=== PATIENT | male | born 1935 | race Caucasian/White ===

== ENCOUNTER 2017-06-25 11:12 | Outpatient (CLI) | payer BC ==
--- NOTE | 2017-06-25 13:03 | RAD ---
RADIOGRAPH CHEST 2 VIEWS: Date: 06-25-17 Time: 11:28 a.m. HISTORY: 81-year-old male with dyspnea. Dr. Bauer reported one of the right pulmonary masses, and the recommendation for CT, by telephone discu ssion with Dr. German Campos at 11:32 a.m. on 06-25-17. COMPARISON: 08-29-15 FINDINGS: On the frontal view, there is a noncalcified, approximately 3 x 1.5 cm pulmonary mass in the right mi dlung zone, with irregular margins, which represents a significant interval change since the prior st udy. There is a more dense questionable pulmonary nodule in the right upper lobe, partially overlapping th e inferior aspect of the right clavicle, measuring approximately 2 x 2.5 cm, which is another apparen t change compared to prior studies. There is severe tortuosity, ectasia, and fusiform aneurysmal dilatation of the descending thoracic ao rta. The aneurysm has been progressively enlarging over the years, from 2013 to 2014, 2017, to now. Again noted are the multiple old left rib fracture deformities. There is diffuse, severe osteopenia. No pleural effusion or consolidation. No pulmonary edema or consolidation. No pneumothorax. There is hyperinflation consistent with COPD. IMPRESSION: 1. Highly suspicious for right pulmonary neoplasm: at least one, and possibly two. 2. Severe aneurysm of thoracic aorta, progressively worsening over the years. 3. Prosthetic aortic valve. 4. Emphysema. 5. Multiple old left rib fracture deformities. 6. No acute pulmonary findings. FELIPE POS: [facility]
== END 2017-06-25 11:13 | disposition home or self-care (01) ==
LOC: RAD 11:12
PROVIDERS: ATTEND Internal Medicine Critical Care Medicine
DX: R06.00 Dyspnea, unspecified (principal); I71.2 Thoracic aortic aneurysm, without rupture; J43.9 Emphysema, unspecified; Z87.81 Personal history of (healed) traumatic fracture
CPT/HCPCS: 71046

== ENCOUNTER 2017-06-26 11:37 | Outpatient (CLI) | payer BC ==
--- NOTE | 2017-06-26 12:59 | CT ---
TWO VIEWS CHEST WITHOUT CONTRAST: HISTORY: Lung nodule. COMPARISON: Chest radiograph prior day. FINDINGS: There is a spiculated mass right upper lobe measuring 1.9 x 2.6 x 2.3 cm. There is also a mass abutt ing the pleura within the anterior segment right upper lobe which is not quite as spiculated and daniel ures 2.1 x 1.2 x 2.3 cm. This mass rests behind the rib. Moderate background emphysematous change. There is aneurysmal dilatation of the descending thoracic aorta which is markedly ectatic. The aorta measures up to 7.7 cm. There is partial thrombosis on so me of the wall and possibly even an intramural hematoma and suggestion of a dissection. There is an aneurysm that extends into the abdomen. There is a calcified mass in the right lobe of the liver. Small sliding hiatal hernia. There is a d iverticulum of the lesser curvature of the stomach. There is an incompletely visualized ventral hernia. IMPRESSION: 1. Two right upper lobe masses highly suggestive of malignancy. 2. Aneurysmal dilatation of the descending thoracic aorta and abdominal aorta with likely intracrani al hematoma and dissection. Angiogram study may be beneficial. Thoracic surgical consultation is hi ghly advised. 3. Calcified mass right lobe of the liver incompletely evaluated. A contrast-enhanced study liver p rotocol may be beneficial if clinically warranted. 4. Moderate to severe background centrilobular emphysema. 5. Multiple left-sided rib fractures. CODE: T CODE: Lung nodule POS: [facility]
== END 2017-06-26 11:38 | disposition home or self-care (01) ==
LOC: CT 11:37
PROVIDERS: ATTEND Internal Medicine Critical Care Medicine
DX: R91.1 Solitary pulmonary nodule (principal); R91.8 Other nonspecific abnormal finding of lung field; J43.2 Centrilobular emphysema; I71.2 Thoracic aortic aneurysm, without rupture; I71.4 Abdominal aortic aneurysm, without rupture; S22.42XA Multiple fractures of ribs, left side, initial encounter for closed fracture; R16.0 Hepatomegaly, not elsewhere classified
CPT/HCPCS: 71250

== ENCOUNTER 2017-07-11 08:48 | Outpatient (CLI) | payer BC ==
--- NOTE | 2017-07-11 15:01 | PET ---
PET CT: HISTORY: 81-year-old male with solitary pulmonary nodule. Incidental right lung lesions (2). TECHNIQUE: PET scanning with CT attenuation correction was performed from the base of the brain through the prox imal thighs following the intravenous administration of 12 mCi [id number] in the left antecubital fossa. Imaging was performed after an uptake interval of 52 minutes. COMPARISON: None. CORRELATION: CT chest dated 06/26/17. FINDINGS: There is hypermetabolic activity in the right upper lobe spiculated mass noted on the CT scan with a SUV of 6.4. No abnormal FDG localization is seen in the pleural based mass in the right upper lobe (S UV 1.6). Hypermetabolic mediastinal lymph nodes are seen with a SUV of 3.2. No maggie hypermetabolism is seen i n the hilar regions, axilla, neck, abdomen, or pelvis. No hypermetabolic liver, adrenal, or skeletal lesions are seen. There is physiologic activity in the GI and tracts. The CT scan used for attenuation correction demonstrates no evidence of pleural effusions or ascites. There is a porcelain gallbladder. There is aneurysmal dilatation of the descending thoracic aorta an d the abdominal aorta measuring 7.5 cm in the descending thoracic aorta, 6.5 cm in the upper abdomina l aorta, and 5.5 cm in the infrarenal abdominal aorta. There are nonobstructing tiny right renal calc renato. A ventral hernia is seen containing loops of transverse colon. IMPRESSION: 1. 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 2. Aortic aneurysms. 3. Porcelain gallbladder. 4. Nonobstructing right renal calculi. POS: [facility]
== END 2017-07-11 08:49 | disposition home or self-care (01) ==
LOC: CP 08:48
PROVIDERS: ATTEND Internal Medicine Critical Care Medicine
DX: R91.1 Solitary pulmonary nodule (principal); J44.9 Chronic obstructive pulmonary disease, unspecified; C34.11 Malignant neoplasm of upper lobe, right bronchus or lung; C77.1 Secondary and unspecified malignant neoplasm of intrathoracic lymph nodes; I71.2 Thoracic aortic aneurysm, without rupture; K82.8 Other specified diseases of gallbladder; N20.0 Calculus of kidney
CPT/HCPCS: 78815; 94060; 94727; 94729; A9552

== ENCOUNTER 2017-08-19 08:43 | Day surgery (SDC) | payer BC ==
[2017-08-02 14:13] VITALS: BMI 25.8
[~2017-08-19 08:43] MED LIST: FLU VACC TS2017-18 (>65YR) 0.5 ML SYRINGE IM ONE; Prevnar 13-Val Conj/PF 0.5 ML SYRINGE IM ONE
[2017-08-19 09:05] LABS: #Eosinphils 0.1 thou/uL (0.0-0.7); #Lymphocytes 1.5 thou/uL (1.20-3.40); #Monocytes 0.6 thou/uL (0.11-0.59); #Neutrophils 4.6 thou/uL (1.40-6.50); %Basophils 0.6 % (0.0-1.0); %Eosinophils 1.9 % (0.0-10.0); %Lymphocytes 21.7 % (21.0-51.0); %Monocytes 8.5 % (0.0-10.0); %Neutrophils 67.3 % (42.0-75.0); Hemoglobin 13.1 g/dL (14.0-18.0); Mean Corpuscular HGB CONC 31.6 g/dL (32.0-36.0); Mean Corpuscular Hemoglobin 30.5 pg (27.0-31.0); Mean Corpuscular Volume 96.6 fl (80.0-94.0); Platelet Count 118 thou/uL (130-400); RBC Distribution Width 12.8 % (11.5-14.5); Red Blood Cell (RBC) Count 4.28 mill/uL (4.70-6.10); White Blood Cell (WBC) Count 6.8 thou/uL (4.8-10.8)
[2017-08-19 09:07] LABS: INR-International Normal Ratio 1.2; PTT 32.2 SEC (22.9-36.1); Prothrombin Time 15.2 SEC (12.0-14.7)
[2017-08-19] MEDS ORDERED: Midazolam HCl 2 mg/2 ml Vial ONE (09:41)
[2017-08-19] MEDS ORDERED: Fentanyl 100 MCG/2 ML VIAL ONE (09:41)
[2017-08-19 09:50] VITALS: BP 131/76; TEMP 98.2
[2017-08-19] MEDS ORDERED: Benzonatate 100 MG CAP PO SCH (12:15)
--- NOTE | 2017-08-19 13:31 | RAD ---
INSPIRATORY AND EXPIRATORY AP CHEST X-RAY: 08/19/2017 HISTORY: Post right upper lobe mass biopsy. COMPARISON: 06/25/2017 FINDINGS: The previously noted right upper lobe spiculated mass is slightly larger in size when compared to the prior exam. The pleural-based mass in the right upper lobe noted on the prior CT exam is less well seen on this exam but is seen adjacent to the right hilum and was better visualized on a prior chest x-ray. There is a small right apical pneumothorax. The thoracic aorta is tortuous, dilated, and partially calcified. There is now blunting of the left lateral costophrenic angle, which may represent either pleural or parenchymal scarring or a tiny left pleural effusion. Post surgical changes of the left chest wall are again present. Aortic valve rep lacement is again seen. A calcified granuloma overlies the right mid lung zone. No other interval c hange. IMPRESSION: 1. Small right apical pneumothorax, which was also noted on CT scan post biopsy. A follow-up evalua tion will be performed two hours from this exam. 2. Spiculated right upper lobe mass with a smaller mass overlying the medial aspect of the right mid lung zone, better visualized on prior exam and on prior CT evaluations. 3. Blunting of the left lateral costophrenic angle, which may be related to either a small left pleu ral effusion or pleural and parenchymal scarring. 4. Aneurysmal dilatation of the thoracic aorta, which is tortuous and partially calcified. POS: [facility]
--- NOTE | 2017-08-19 13:45 | CT ---
CT GUIDED PERCUTANEOUS BIOPSY OF A RIGHT UPPER LOBE MASS: DATE: 08/19/17. HISTORY: Spiculated right upper lobe mass. Biopsy was requested. TECHNIQUE: The procedure including the risks and complications were explained to the patient and the patient's f amily. After informed consent was obtained, the patient was placed on the CT scan table in the supin e position. Limited noncontrasted CT scan was obtained with grid localizer in place overlying the right upper lob e mass. An area was marked and then meticulously prepped and draped in the usual sterile fashion. Th e skin and subcutaneous tissues were infiltrated with buffered 1% Lidocaine for local anesthesia. A 19-gauge guide needle was advanced followed by [address] images. This was repeated until the needle was placed at the peripheral aspect of the right upper lobe mass. A total of two 20 -gauge core needle biopsy specimens were obtained utilizing coaxial technique. Pathology was available for evaluation of the specimens and lesion tissue was obtained by preliminary pathology report. As a result, the needle was removed, and hemostasis was achieved with direct pres sure. Followup CT scan examination was performed which did demonstrate a small right apical pneumoth orax. However, the patient experienced no chest pain or discomfort on inspiration. Given the very s mall size of the pneumothorax, a thoracostomy tube was not placed at this time. A dry, sterile dress ing was placed at puncture site, and the patient was transported to radiology nurse's holding for fur ther monitoring. Initial followup chest x-ray also demonstrated a small right apical pneumothorax. Repeat chest x-ray 2 hours from the initial chest x-ray will be performed to further monitor the righ t apical pneumothorax. IMPRESSION: 1. Technically successful CT-guided percutaneous biopsy of a right upper lobe mass. Pathologist was available for evaluation of the initial specimens which demonstrated adequate material for evaluatio n. 2. Small right apical pneumothorax. Will continue to follow. POS: [facility]
--- NOTE | 2017-08-19 15:18 | RAD ---
INSPIRATORY AND EXPIRATORY AP CHEST RADIOGRAPHS: Date: 08-19-17 History: Right sided pneumothorax post right lung mass biopsy. Comparison: Inspiratory/expiratory chest radiograph obtained at 1050 hours. FINDINGS: Again noted is the right apical pneumothorax which is unchanged in size compared to the prior exam. R ight upper lobe mass with mass medial aspect lung zone are again seen. No pleural effusion is seen on the right. Post-surgical changes related to cardiac valve replacement as well as post-surgical changes of the le ft chest wall are again seen. Blunting of the left lateral costophrenic angle is again present. Thora cic aorta remains dilated and tortuous. No other interval change. IMPRESSION: Stable right apical pneumothorax. Pneumothorax was reviewed with Dr. Quintanilla. Given that there has be en no significant interval change in the right sided pneumothorax, and patient has no clinical sympto ms, patient was discharged with strict instructions to return to the Emergency Department if the shelly ent developed shortness of breath or chest pain. Findings were discussed with the patient as well as the patient's family. POS: [facility]
== END 2017-08-19 13:40 | disposition home or self-care (01) ==
LOC: CT 08:43
PROVIDERS: ATTEND Internal Medicine Critical Care Medicine
PROC: 0BBC3ZX Excision of Right Upper Lung Lobe, Percutaneous Approach, Diagnostic (ICD-10-PCS; principal; 2017-08-19)
PROC: BB28ZZZ Computerized Tomography (CT Scan) of Left Tracheobronchial Tree (ICD-10-PCS; principal; 2017-08-19)
DX: C34.11 Malignant neoplasm of upper lobe, right bronchus or lung (principal); J44.9 Chronic obstructive pulmonary disease, unspecified; I10 Essential (primary) hypertension; E11.9 Type 2 diabetes mellitus without complications; Z79.84 Long term (current) use of oral hypoglycemic drugs; Z79.51 Long term (current) use of inhaled steroids; Z79.82 Long term (current) use of aspirin; Z79.899 Other long term (current) drug therapy; Z88.5 Allergy status to narcotic agent
CPT/HCPCS: 32405; 36415; 71045; 77012; 85025; 85610; 85730; 88305; 88313; 88333; 88341; 88342; J2250; J3010

== ENCOUNTER 2017-08-22 19:51 | Inpatient (IN) | payer BC, MEDICARE ==
[2017-08-22 20:46] LABS: #Basophils 0.1 thou/uL (0.0-0.2); #Eosinphils 0.3 thou/uL (0.0-0.7); #Lymphocytes 1.2 thou/uL (1.20-3.40); #Monocytes 0.9 thou/uL (0.11-0.59); #Neutrophils 5.8 thou/uL (1.40-6.50); %Basophils 0.8 % (0.0-1.0); %Eosinophils 3.1 % (0.0-10.0); %Lymphocytes 14.4 % (21.0-51.0); %Monocytes 10.5 % (0.0-10.0); %Neutrophils 71.2 % (42.0-75.0); Hemoglobin 12.7 g/dL (14.0-18.0); Mean Corpuscular HGB CONC 33.4 g/dL (32.0-36.0); Mean Corpuscular Hemoglobin 30.2 pg (27.0-31.0); Mean Corpuscular Volume 90.5 fl (80.0-94.0); Mean Platelet Volume 7.7 fL (7.4-10.4); PLT Morphology Comment Appears Decreased; Platelet Count 111 thou/uL (130-400); RBC Distribution Width 12.1 % (11.5-14.5); RBC Morphology Normal; Red Blood Cell (RBC) Count 4.19 mill/uL (4.70-6.10); White Blood Cell (WBC) Count 8.1 thou/uL (4.8-10.8)
[2017-08-22 20:50] LABS: ALT (SGPT) 12 U/L (8-55); AST (SGOT) 12 U/L (5-34); Alkaline Phosphatase 90 U/L (40-150); Anion Gap 12 mmol/L (10-20); BUN (Urea Nitrogen) 39 mg/dL (8.4-25.7); Bilirubin, Total 0.5 mg/dL (0.2-1.2); Calc. Creatinine Clearance 0 mL/min (70-130); Calcium 9.2 mg/dL (7.8-10.44); Carbon Dioxide 25 mmol/L (23-31); Chloride 108 mmol/L (98-107); Digoxin Less than 0.15 ng/mL (0.8-2.0); Estimated GFR-MDRD 37; Globulin 2.6 g/dL (2.4-3.5); Glucose 134 mg/dL (83-110); Potassium 5.2 mmol/L (3.5-5.1); Protein, Total 5.6 g/dL (5.8-8.1); Sodium 140 mmol/L (136-145)
[2017-08-22 20:51] LABS: CKMB 1.1 ng/mL (0-6.6); Troponin I 0.033 ng/mL (< 0.028)
[2017-08-22 20:59] LABS: MDiff Complete? YES
--- NOTE | 2017-08-22 23:08 | RAD ---
RADIOGRAPH CHEST 1 VIEW: Date: 08/22/17 Time: 8:25 p.m. HISTORY: 81-year-old male with dyspnea. COMPARISON: 08/19/17. FINDINGS: The previously demonstrated right apical pneumothorax is again demonstrated, occupying approximately 20% volume of the right hemithorax. It has not significantly changed. Again noted is the right upper lobe pulmonary mass. Again noted are the saccular aneurysm of the proximal descending thoracic aorta, and fusiform aneurysm of the mid and distal thoracic aorta. There is cardiomegaly. There are promine nt interstitial markings diffusely. No consolidation. No larry pulmonary alveolar edema or new air sp cheryl density. There is mild blunting of the lateral costophrenic angles bilaterally, similar to 8, but not present on 06/25/17. IMPRESSION: 1. Small right apical pneumothorax is unchanged. 2. Right upper lobe lung cancer. 3. Both saccular and fusiform aneurysms of the thoracic aorta. 4. Cardiomegaly and possible tiny bilateral pleural effusions. 5. No major interval change since 08/19/17. FELIPE [] POS: [facility]
[2017-08-22] MEDS ORDERED: Ondansetron HCl/PF 4 MG/2 ML Vial IVP PRN (23:13)
[2017-08-22] MEDS ORDERED: Acetaminophen 325 MG TAB PO PRN (23:13)
[2017-08-22] MEDS ORDERED: Ondansetron ODT 4 MG TAB SL PRN (23:13)
[2017-08-22 23:39] VITALS: BMI 25.9
[2017-08-23] MEDS ORDERED: HumaLOG 300 UNITS/3 ML VIAL SC PRN ×2 (00:11)
[2017-08-23] MEDS ORDERED: Dextrose 50% Abboject 50 ML SYRINGE SLOW IVP PRN (00:11)
[2017-08-23] MEDS ORDERED: Dextrose 5% in Water 1,000 ML IV PRN (00:11)
--- NOTE | 2017-08-23 01:33 | HP ---
PRIMARY CARE PHYSICIAN: Dr. Larose. ENVELOPE STAMPING MACHINE OPERATOR: Dr. Campos. CHIEF COMPLAINT: Shortness of breath. HISTORY OF PRESENT ILLNESS: Mr. Ware is a pleasant 81-year-old gentleman that has a history of se bebe COPD. He is on 2 liters of nasal cannula oxygen at home. He recently was found to have a lung mass and had a biopsy performed on Saturday and after the biopsy, he developed a small pneumothorax. Ginger meeks was told that he may have some shortness of breath, but it typically should get better in a few day s; however, he did feel short of breath, but did not improve over the course of the few days. He say s that he has been having a worsening cough and it is productive of some whitish phlegm. There is no blood, but he really notes extreme dyspnea on exertion and increase in work of breathing according t o his son and his son says that it seems like it takes him longer to recover and this is the reason ginger meeks came to the ER. Chest x-ray in the ER demonstrated the apical pneumothorax on the right; however, it is extremely small, but no evidence of any infiltrate. REVIEW OF SYSTEMS: Constitutional: There are no fevers, chills, no night sweats, no weight loss. H EENT: No headaches, no dizziness, no visual changes, no sore throat, rhinorrhea, neck pain, no adeno evangelista. Pulmonary: No hemoptysis, no cough, no wheezing. Cardiovascular: He denies any chest pain, no PND, no orthopnea, no palpitations. Gastrointestinal: No abdominal pain, no nausea, no vomiting , no change in bowels. Genitourinary: No urinary frequency, hematuria, no hesitancy. Musculoskelet al: No muscle pains, weakness or joint pains. Neurologic: No focal weakness, numbness, no seizures . Psychiatric: No symptoms of anxiety or depression. Skin and Integument: No skin changes. No ra sh. PAST MEDICAL HISTORY: Significant for chronic respiratory failure secondary to chronic obstructive p ulmonary disease with hypoxemia; hypertension; diabetes mellitus, type 2; history of aortic stenosis. PAST SURGICAL HISTORY: He has had a triple layer repair and that is an abdominal aortic aneurysm as well as a transvenous aortic valve replacement about 4 years ago. ALLERGIES: CODEINE, MORPHINE and DILAUDID. FAMILY HISTORY: Significant for diabetes in his mother. SOCIAL HISTORY: He is , has 5 children. He smokes. He is a former smoker. He quit 30 years ago. Prior to that, he smoked a pack and a half a day for at least 20 years. CURRENT MEDICATIONS: Include ProAir HFA, aspirin 81 mg daily, Lipitor 20 mg at bedtime, Dulera 5 mcg daily, Flomax 0.4 mg at bedtime, famotidine 40 mg twice daily, Cozaar 100 mg daily, metoprolol 12.5 mg twice a day, Spiriva 18 mcg daily, glipizide 5 mg daily, Norvasc 5 mg daily and finasteride 5 mg d aily. PHYSICAL EXAMINATION: GENERAL: He is alert and oriented. He does appear a bit fatigued. He is well-developed and well-no urished. VITAL SIGNS: Blood pressure was 131/83, heart rate 68, respiratory rate of 18, temperature is 98.4, O2 sats 100% on 2 liters nasal cannula. HEENT: Pupils are equal, round, and reactive. Extraocular muscles are intact. His sclerae are anic teric. Throat: No erythema, no exudates. NECK: No adenopathy, no bruits. LUNGS: He has got poor air movement. I did not appreciate any wheezing or rales. In fact, his lung sounds were diminished on both sides. CARDIOVASCULAR: He has a normal S1, S2. There was no S3 or S4. No murmurs, clicks, no rubs and his heart sounds are distant. ABDOMEN: Soft, nondistended. He does have an abdominal ventral hernia. Positive bowel sounds. EXTREMITIES: He has got trace pedal edema. NEUROLOGICALLY: The exam is nonfocal. LABORATORY DATA: Digoxin level 0.15. White blood cell count 8.1, hemoglobin 12.7, hematocrit is 38, platelet count is 111. Sodium 140, potassium 5.2, chloride is 108, CO2 is 25, BUN of 30, creatinine 1.78, glucose is 134. ASSESSMENT AND PLAN: This is an 81-year-old gentleman who presents with shortness of breath, which h e says he started noticing immediately after having a lung biopsy and has been persistent since then. Chest x-ray findings did not show any significant pneumothorax, only a small apical one. It is unc lear whether or not the pneumothorax is the cause of his shortness of breath or he may be having a ch ronic obstructive pulmonary disease exacerbation; however, his lung exam was more or less unremarkabl e. He will be placed in observation for now. We will continue his usual home medications for his lexii ngs including the Dulera and albuterol as needed and Atrovent will replace Spiriva while in the hospi xu, and consult his radiology manager for further recommendations.
[2017-08-23] MEDS ORDERED: glipiZIDE 5 MG TAB PO SCH (07:30)
[2017-08-23] MEDS ORDERED: Losartan 25 MG TAB PO SCH (09:00)
[2017-08-23] MEDS ORDERED: Famotidine 20 MG TAB PO SCH (09:00)
[2017-08-23] MEDS ORDERED: Mometasone/Formoterol 120 PUFF INHALER INH SCH (09:00)
[2017-08-23] MEDS ORDERED: Spiriva 18 MCG CAP (Box of 5 Caps) INH SCH (09:00)
[2017-08-23] MEDS ORDERED: Amlodipine 5 MG TAB PO SCH (09:00)
[2017-08-23] MEDS ORDERED: Finasteride 5 MG TAB PO SCH (09:00)
[2017-08-23] MEDS ORDERED: Metoprolol Tartrate 25 MG TAB PO SCH (09:00)
[2017-08-23] MEDS ORDERED: Aspirin 81 mg Enteric Coated Tablet PO SCH (09:00)
[2017-08-23 09:06] VITALS: BP 136/74; TEMP 97.7
--- NOTE | 2017-08-23 11:58 | CON ---
DATE OF CONSULTATION: 08/23/2017 HISTORY OF PRESENT ILLNESS: Mr. Ware is a pleasant gentleman whom I have followed for many years with COPD. Said he was expecting to gradually feel better each day after a small pneumothorax as a result of a CT-guided lung biopsy. He was diagnosed as having adenocarcinoma. He was not feeling as well as he thought he should, so he went to the emergency room. They decided that he should be admitted. He wants to go home. Actually, I know the gentleman quite well and he is not very far below his baseline at this point. He is not dyspneic at rest. PAST MEDICAL HISTORY: Remarkable for; 1. Recent diagnosis of adenocarcinoma of the right lung. He had a new lesion in his right upper lobe that was worked up and biopsied. He has been referred to Oncology and was actually seen by them 2 days ago. 2. History of several aortic aneurysm repairs. 3. History of a transcutaneous aortic valve. 4. History of obstructive lung disease. He actually has significant obstructive lung disease, but manages to continue to travel with just metered dose inhalers. 5. Diabetes. 6. Hypertension. FAMILY HISTORY: Negative for lung disease at an early age. There is a history of diabetes. SOCIAL HISTORY: He does not smoke, does not drink. MEDICATIONS: Prior to admission, he has ProAir, aspirin, Lipitor, Dulera, Flomax, Pepcid, Cozaar, metoprolol, Spiriva, glipizide, Norvasc and finasteride. REVIEW OF SYSTEMS: Otherwise, 12-point negative. PHYSICAL EXAMINATION: GENERAL: Patient is a very pleasant gentleman VITAL SIGNS: He is afebrile. Heart rate is 85, respiratory rate is 18, blood pressure 136/74. His oximetry as an outpatient has been in the mid 90s on room air. He is 99% on a 2 liter cannula. HEENT: His pupils are equal. Sclerae is anicteric. NECK: Supple. LUNGS: Remarkable for distant breath sounds. HEART: Regular rhythm. No S3. ABDOMEN: Soft and nontender. EXTREMITIES: No clubbing, cyanosis or edema. LABORATORY DATA: White count 8.1, hemoglobin 12.7 and platelets 111. Sodium 140, potassium 5.2, chloride 108, bicarbonate 25, BUN 39 and creatinine 1.78. His baseline creatinine last year was 1.65 and 1.67, so he is close to his baseline. IMPRESSION: 1. Adenocarcinoma, currently being evaluated for sterotactic radiotherapy plus or minus chemotherapy. 2. Thoracic and abdominal aortic aneurysm. 3. Status post aneurysm repairs. 4. Status post transcutaneous aortic valve replacement. 5. Small pneumothorax after biopsy. I think this contributes only a little to removing his pulmonary reserve. PLAN: I would recommend treating him his COPD exacerbation, realizing that his blood sugar will drift up a little bit, take 40 of prednisone for 4 days, then 20 mg a day for 6 days, and 10 mg for 6 days. I have written a script for a nebulizer. I have written a script for DuoNeb. He can use his nebulizer 3-4 times a day. I have recommended he follow up with me early next week. I think he is stable for discharge. This is a 50-minute consult. Greater than 50% of the time was spent on unit coordinating care. LV
--- NOTE | 2017-08-23 20:51 | DIS ---
PRIMARY CARE PHYSICIAN: German Larose M.D. DATE OF ADMISSION: 08/22/2017 DATE OF DISCHARGE: 08/23/2017 DISCHARGE DIAGNOSIS: Chronic obstructive pulmonary disease exacerbation. CONDITION OF PATIENT AT THE TIME OF DISCHARGE: Stable. I assessed Mr. Ware on the day of dischar . He denies any chest pain or shortness of breath. Vital signs are stable. S1 and S2 are heard, regular. Lungs are clear to auscultation bilaterally. HOSPITAL COURSE: Mr. Ware is a pleasant 81-year-old gentleman, who was admitted to [facility] on 08/22/2017 for shortness of breath. This is in the context of having a small pneumothorax as a result of CT-guided lung biopsy. He was seen by Pulmonology Service. He was diagnosed with chronic obstructive pulmonary disease exac erbation. He has been started on DuoNebs, prednisone taper and doxycycline. He is being discharged home in a stable condition. CONSULTATIONS DURING THIS HOSPITALIZATION: Pulmonology, Dr. Campos. DISCHARGE MEDICATIONS: In addition to his preadmission home medications as dictated on history and p hysical note from 08/22/2017, he has been started on prednisone taper, doxycycline 100 mg 2 times a d ay and DuoNebs p.r.n. Many thanks for allowing me to participate in your patient's care. Please feel free to contact me wi th any questions or concerns. DISCHARGE DESTINATION: Home. TOTAL AMOUNT OF TIME SPENT COORDINATING THIS DISCHARGE: 18 minutes.
[2017-08-23] MEDS ORDERED: Atorvastatin Calcium 20 MG TAB PO SCH (21:00)
[2017-08-23] MEDS ORDERED: Tamsulosin HCl 0.4 MG CAP PO SCH (21:00)
--- NOTE | 2017-09-03 15:45 | EKG ---
Test Reason : Blood Pressure : / mmHG Vent. Rate : 085 BPM Atrial Rate : 085 BPM P-R Int : 144 ms QRS Dur : 110 ms QT Int : 388 ms P-R-T Axes : 059 -46 125 degrees QTc Int : 461 ms Sinus rhythm with occasional , and consecutive Premature ventricular complexes and Possible Premature atrial complexes with Abberant conduction Left axis deviation Inferior infarct , age undetermined Anterior infarct , age undetermined T wave abnormality, consider lateral ischemia Abnormal ECG Confirmed by BRIE KRISHNAMURTHY D.O. ([id number]), medical editor ROSLYN ORELLANA ([id number]) on 09/03/2017 3:43:52 PM Referred By: Confirmed By:BRIE KRISHNAMURTHY D.O.
== END 2017-08-23 12:53 | disposition home or self-care (01) | DRG 200 ==
LOC: SCSER 19:51 → 2NO 22:54
PROVIDERS: ADMIT Internal Medicine; ATTEND Internal Medicine
DX: J95.811 Postprocedural pneumothorax (principal); J44.1 Chronic obstructive pulmonary disease with (acute) exacerbation; J96.11 Chronic respiratory failure with hypoxia; I71.2 Thoracic aortic aneurysm, without rupture; C34.11 Malignant neoplasm of upper lobe, right bronchus or lung; Z99.81 Dependence on supplemental oxygen; E11.9 Type 2 diabetes mellitus without complications; I10 Essential (primary) hypertension; Z87.891 Personal history of nicotine dependence; K43.9 Ventral hernia without obstruction or gangrene; I71.4 Abdominal aortic aneurysm, without rupture; Z95.2 Presence of prosthetic heart valve
CPT/HCPCS: 36416; 71045; 80053; 80162; 82553; 83880; 84484; 85025; 93005; 94640; 94664; A4216; J7620

== ENCOUNTER 2017-12-02 10:29 | Outpatient (CLI) | payer BC ==
--- NOTE | 2017-12-02 12:36 | RAD ---
TWO VIEW CHEST: Indication: Dyspnea. History of lung cancer. Comparison: August 2017, Chest CT June 2017. FINDINGS: Cardiomegaly. Vascular congestion. Right lung mass in the suprahilar region again noted. Small bilate ral effusions. Mild vascular congestion. Prominent aortic calcification with a tortuous aorta. There appears to be aneurysmal dilatation of this tortuous descending thoracic aorta. IMPRESSION: Cardiomegaly and mild vascular congestion. Known lung cancer. Tortuous ectatic thoracic aorta. No misa dence of acute focal infiltrate when compared to prior study. POS: [facility]
== END 2017-12-02 10:30 | disposition home or self-care (01) ==
LOC: RAD 10:29
PROVIDERS: ATTEND Internal Medicine Critical Care Medicine
DX: R06.00 Dyspnea, unspecified (principal); I51.7 Cardiomegaly; I77.810 Thoracic aortic ectasia; R09.89 Other specified symptoms and signs involving the circulatory and respiratory systems
CPT/HCPCS: 71046

== ENCOUNTER 2017-12-03 02:22 | Inpatient (IN) | payer BC ==
[2017-12-03] MEDS ORDERED: Albuterol Sulfate 2.5 mg/3 ml Neb ONE (02:43)
[2017-12-03] MEDS ORDERED: cefTRIAXone\\ROCEPHIN 2 GM VIAL ONE (03:06)
[2017-12-03] MEDS ORDERED: methylPREDNISolone Sod Succ/PF 125 MG/2 ML VIAL ONE (03:07)
[2017-12-03 03:17] LABS: Band 43 % (5-11); Eosinophils 3 % (0-10); Hemoglobin 12.8 g/dL (14.0-18.0); Lymphocytes 1 % (21-51); MDiff Complete? YES; Mean Corpuscular HGB CONC 32.5 g/dL (32.0-36.0); Mean Corpuscular Hemoglobin 30.4 pg (27.0-31.0); Mean Corpuscular Volume 93.6 fL (78.0-98.0); Mean Platelet Volume 7.6 fL (7.4-10.4); Monocytes 3 % (0-10); Neutrophil 50 % (42-75); PLT Morphology Comment Appears Decreased; Platelet Count 109 thou/uL (130-400); RBC Distribution Width 13.4 % (11.5-14.5); Reflex for Review?? NO; White Blood Cell (WBC) Count 10.9 thou/uL (4.8-10.8)
[2017-12-03 03:28] LABS: CKMB 1.4 ng/mL (0-6.6); Troponin I 0.029 ng/mL (< 0.028)
[2017-12-03 03:32] LABS: Actual Bicarbonate (HCO3a) 26.8 mEq/L (22-28); CO2 Tension 52.7 mmHg (35.0-45.0); O2 Tension (PaO2) 83.7 mmHg (> 60.0); pH, Arterial 7.32 (7.35-7.45)
[2017-12-03 03:33] LABS: Analyzer IN Cardio ER; Calcium, Ionized 1.4 mmol/L (1.12-1.30); Hematocrit-ABG 38.9 % (42.0-52.0); Hemoglobin (Hb) 12.6 g/dL (14.0-18.0)
[2017-12-03 03:34] LABS: ALV-art Gradient 343.225 (0-20); Puncture Site RRA
[2017-12-03 03:54] LABS: ALT (SGPT) 11 U/L (8-55); AST (SGOT) 31 U/L (5-34); Albumin 3.5 g/dL (3.4-4.8); Alkaline Phosphatase 117 U/L (40-150); Anion Gap 9 mmol/L (10-20); BUN (Urea Nitrogen) 46 mg/dL (8.4-25.7); Bilirubin, Total 0.7 mg/dL (0.2-1.2); Calc. Creatinine Clearance 0 mL/min (70-130); Carbon Dioxide 29 mmol/L (23-31); Chloride 107 mmol/L (98-107); Estimated GFR-MDRD 43; Globulin 3.3 g/dL (2.4-3.5); Glucose 133 mg/dL (83-110); Lipase 7 U/L (8-78); Magnesium 2.3 mg/dL (1.6-2.6); Potassium 5.8 mmol/L (3.5-5.1); Protein, Total 6.8 g/dL (5.8-8.1); Sodium 139 mmol/L (136-145)
[2017-12-03] MEDS ORDERED: Bisacodyl 5 MG TAB PO PRN (08:49)
[2017-12-03] MEDS ORDERED: Acetaminophen 650 MG Suppository PR PRN (08:49)
--- NOTE | 2017-12-03 09:13 | RAD ---
PORTABLE AP CHEST RADIOGRAPH: Date: 12-03-17 History: Shortness of breath. Comparison: 12-02-17 FINDINGS: Mass like density in the right suprahilar region is again present. There is a small right pleural eff usion and question of a tiny left pleural effusion. Vascular calcifications are seen in the thoracic aorta with suggestion of bilobed aneurysmal dilatation of the descending thoracic aorta, also see on prior exam. The cardiac silhouette does appear to be shifted to the left, stable in appearance compar ed to the prior exam. There are chronic lung changes present. Deformity of the left chest wall is aga in noted. There is osteopenia. IMPRESSION: 1. Stable mass like opacity in the right suprahilar region. 2. Small to moderate sized right pleural effusion with suggestion of small left pleural effusion in a ddition to atelectasis. 3. Chronic lung changes. 4. Irregular bilobed aneurysmal dilatation of the descending thoracic aorta, also noted on prior exam . 5. Osteopenia. POS: [facility]
--- NOTE | 2017-12-03 10:21 | CT ---
PRELIMINARY REPORT/[facility]/EMERGENTY AFTER-HOURS PROCEDURE CT Angiography Chest With Intravenous Contrast CLINICAL HISTORY: 82 years old, male; Signs and symptoms; Shortness of breath; Patient HX: 82 yo m presents to ed with SOB. Son reports that pt has HX of respiratory distress and anxiety. Son reports that pt has been fee ling like he couldn't breath off and on for the past few days. Pt has history of stage 1 lung cancer, was not prescribed oxygen treatments. Pt was just given radiation, was not on chemo and finished olya atment about 4 weeks ago. Son reports most recent chest xray was clear. Pt has HX of copd and some ch f. Pt denies HX of blood clots. TECHNIQUE: Axial computed tomographic angiography images of the chest with intravenous contrast using pulmonary embolism protocol. MIP reconstructed images were created and reviewed. Coronal reformatted images were created and reviewed. COMPARISON: No relevant prior studies available. FINDINGS: Pulmonary arteries: Normal. No pulmonary embolism. Aorta: There is aneurysmal dilatation of the descending thoracic aorta up to 7.4 cm in diameter. The aorta demonstrates severe atherosclerotic calcification and ectasia. Lungs: There are nonspecific opacities at lung bases, LEFT greater than RIGHT, compatible with atelec tasis or pneumonia in the appropriate clinical setting. There is a 2.7 x 3.2 cm RIGHT upper lobe pulm onary mass. A 1.7 cm RIGHT middle lobe peripheral pulmonary nodule is noted. Pleural space: There is a moderate RIGHT pleural effusion. No pneumothorax. Heart: Normal. No cardiomegaly. No significant pericardial effusion. No evidence of RV dysfunction. Bones/joints: No acute fracture. No dislocation. Soft tissues: Normal. Lymph nodes: Normal. No enlarged lymph nodes. IMPRESSION: 1. There is a moderate RIGHT pleural effusion. 2. RIGHT lung mass and nodule as above. 3. There are nonspecific opacities at lung bases, LEFT greater than RIGHT, compatible with atelectasi s or pneumonia in the appropriate clinical setting. 4. 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 Thank you for allowing us to participate in the care of your patient. Dictated and Authenticated by: Riccardo Norris MD 12/03/2017 5:30 AM Central Time ([place] & [place]) FINAL REPORT CT PULMONARY ANGIOGRAM WITH IV CONTRAST AND 3D POSTPROCESSING: I agree with the preliminary report given by Dr. Riccardo Loo of [facility]. POS: [facility]
[2017-12-03] MEDS ORDERED: ISOVUE-370 76%-LOCM 1 ML ONE (10:34)
[2017-12-03] MEDS ORDERED: Acetaminophen 325 MG TAB ONE (11:04)
[2017-12-03 12:12] LABS: Bilirubin Negative (Negative); Blood, Urine Small (Negative); Clarity CLEAR (Clear); Glucose, Urine (Dipstick) Negative (Negative); Leukocyte Negative (Negative); Nitrite Negative (Negative); Protein, Urine (Dipstick) > or equal to 300 mg/dL (Neg-Trace); Specific Gravity, Urine 1.044 (1.002-1.036); Urobilinogen 0.2 mg/dL (0.2-1.0)
[2017-12-03 12:15] LABS: Bacteria/HPF None Seen HPF (None Seen); Pathc Cast-AUWi Flag 2.47 (0-2.49); RBC/HPF 0-3 HPF (0-3); Squamous Epithelial 0-3 HPF (0-3)
[2017-12-03 12:17] LABS: Yeast-AUWi Flag 39.3 (0-25.0)
[2017-12-03 12:26] LABS: Hyaline Casts/LPF 0-3 HYALINE CAST LPF (0-3 Hyaline)
[2017-12-03 12:27] LABS: Crystals/HPF 1+ AMORPH URATES HPF (Negative); Yeast-All Forms None Seen HPF (None Seen)
[2017-12-03 13:00] VITALS: BMI 26.4
[2017-12-03] MEDS ORDERED: Lidocaine 1% (PF) 30 ML VIAL ONE (14:37)
--- NOTE | 2017-12-03 14:44 | HP ---
PRIMARY CARE PROVIDER: German Larose M.D. CHIEF COMPLAINT: Shortness of breath. HISTORY OF PRESENT ILLNESS: Mr. Ware is a pleasant 82-year-old gentleman who was seen at [facility] on 12/03/2017. He has a history of lung cancer, for which he received radi ation treatment. His last radiation treatment was 4 weeks ago. He has always been short of breath, but it worsened over the last 4-5 days. He is having difficulty sleeping because of shortness of cynthia ath. He has no chest pain, but he has some pain in the back. He does not have any pain in the abdom en. He does not have any nausea or vomiting. He has cough that is nonproductive. He does not have fevers. He also has anxiety and is currently using Xanax. He reportedly was started on 0.5 mg of Xanax, but that was too sedating. He currently uses 0.125 mg of Xanax as needed. The patient is able to provide some history. Collateral history was obtained from patient's son by t he bedside. REVIEW OF SYSTEMS: All other systems reviewed and found to be negative. PAST MEDICAL HISTORY: Lung cancer status post radiation therapy, chronic respiratory failure seconda ry to chronic obstructive pulmonary disease with hypoxemia, hypertension, diabetes mellitus type 2, a nd aortic stenosis. PAST SURGICAL HISTORY: Abdominal aortic aneurysm repair and transvenous aortic valve replacement. FAMILY HISTORY: Diabetes mellitus in his mother. SOCIAL HISTORY: No current tobacco use or alcohol use or recreational drug use. ALLERGIES: CODEINE, MORPHINE, DILAUDID. CURRENT MEDICATIONS: Aspirin 81 mg daily, amlodipine 5 mg 2 times a day, atorvastatin 20 mg daily, N exium 40 mg 2 times a day, glipizide 5 mg daily, losartan 100 mg daily, metoprolol tartrate 12.5 mg 2 times a day, famotidine 40 mg 2 times a day, tamsulosin 0.4 mg daily, and Benzonatate 100 mg tablets , 2 tablets at bedtime. CODE STATUS: I discussed his code status. He is DNR. PHYSICAL EXAMINATION: GENERAL: Mr. Ware is sleepy, but arousable, on BiPAP machine. VITAL SIGNS: Blood pressure is 127/67, pulse 81, respiratory rate 22, and oxygen saturation 100% on BiPAP. He is afebrile. EYES: No scleral icterus. No conjunctival pallor. ENT: Moist mucosal membranes, no oral lesions. NECK: Supple, nontender, trachea midline. RESPIRATORY: Accessory muscles of breathing are active. Chest wall movements are symmetric bilatera lly. LUNGS: Examination reveals markedly diminished breath sounds at both bases. CARDIOVASCULAR: S1, S2 are heard, regular. Peripheral pulses palpable. No carotid bruit, no perica rdial rub. ABDOMEN: Soft, nontender, bowel sounds heard, no hepatomegaly, no splenomegaly. NEUROLOGIC: Cranial nerves II-XII intact, deep tendon reflexes 2+. MUSCULOSKELETAL: The patient is moving all 4 extremities. He has bilateral lower extremity edema. SKIN: No rashes or subcutaneous nodules. LYMPHATIC: No palpable cervical lymphadenopathy. PSYCHIATRIC: Anxious, oriented to person, place, and time. DATABASE: Mr. Ware's labs and investigations were reviewed. I reviewed his electrocardiogram, wh ich shows normal sinus rhythm, no ST changes to suggest an acute coronary syndrome. I also reviewed his chest x-ray, which shows a right suprahilar mass and right-sided pleural effusion. He also had C T angiogram of the chest, which showed moderate right-sided pleural effusion, right lung mass and nod ule, nonspecific opacities at lung bases, left greater than right, compatible with atelectasis or pne umonia, marked ectasia and aneurysmal dilatation of the descending thoracic aorta up to 7.4 cm in shaun meter. He has leukocytosis with 10,900 white cells, of which 43% are bands neutrophils and 15% are n eutrophils, normocytic anemia with hemoglobin 12.8, thrombocytopenia with platelet count of 109,000, D-dimer greater than 20, normal sodium, elevated potassium of 5.8, elevated blood urea nitrogen of 46 , elevated creatinine of 1.55, baseline creatinine appears to be close to this, indeterminate troponi n I of 0.029 and urinalysis that is positive for ketones and blood, but negative for nitrite and leuk ocyte esterase. ASSESSMENT AND PLAN: Mr. Ware is a pleasant 82-year-old gentleman who was seen at [facility] on 12/03/2017. His problem list includes: 1. Acute on chronic respiratory failure: Mr. Ware is presenting with acute on chronic respirator y failure, most likely secondary to pulmonary infection. He will be admitted to the hospital for fur ther management. 2. Sepsis: His presentation is compatible with sepsis, suspected source of infection, lung. We gus l treat him with intravenous antibiotics in the form of ceftriaxone and azithromycin. 3. Pneumonia: Antibiotics as listed above. 4. Hyperkalemia: We will administer Kayexalate and recheck. 5. Chronic kidney disease. Appears to be stable. Many thanks for allowing me to participate in your patient's care. Please feel free to contact me wi th any questions or concerns. LEVEL OF RISK: High. LEVEL OF COMPLEXITY: High.
[2017-12-03 15:17] LABS: BF Color Yellow; Body Fluid Source PLEURAL FLUID; Clarity Hazy (Clear); Tube # EDTA; WBC Background Count 0.01; WBC/NonHematic-Auto 635 /cumm
[2017-12-03 15:18] LABS: BF RBC Count - Manual 825 /cumm; Fluid, Triglycerides Less than 11 mg/dL (Not Available); Pleural Fluid, Amylase 73 U/L (Not Available); Pleural Fluid, Glucose 194 mg/dL; Pleural Fluid, LDH 78 U/L (Not Available); Pleural Fluid, Protein 2.7 g/dL
[2017-12-03 15:34] LABS: BF Segmented Neutrophils 10 %; Cell Count Non Hematic 38 %; Eosinophils 1 %; Lymphocytes 51 %
--- NOTE | 2017-12-03 15:39 | CON ---
DATE OF CONSULTATION: 12/03/2017 This encompassed 70 minutes time. Of that time, greater than 50% was spent with the patient and/or o n the patient's unit in the hospital. REASON FOR CONSULTATION: Pleural effusion and shortness of breath and acute on chronic respiratory f ailure. HISTORY OF PRESENT ILLNESS: Most of the history is provided by the patient's son and the patient's w brooks, who are at the bedside. This gentleman is a patient of Dr. Campos's, he is 82 years old, he was seen in the office yesterday with increasing shortness of breath. He was prescribed steroids and ant ibiotics is nothing looked acute on his x-ray. He did not get the medication filled. He came to the emergency room because he felt like he needed further investigation. He underwent a CT of the chest , which showed moderate sized right pleural effusion, which was really not that obvious on his chest x-ray. He has just finished radiation therapy for adenocarcinoma of the right upper lobe that was di agnosed by CT needle biopsy. He has had no cough or congestion, but he has had difficulty sleeping b ecause of shortness of breath. PAST MEDICAL HISTORY: 1. Adenocarcinoma. 2. Aortic aneurysm, requiring repair. 3. Status post transcutaneous aortic valve replacement. 4. Chronic obstructive pulmonary disease. 5. Diabetes. 6. Hypertension. PAST SURGICAL HISTORY: Aortic aneurysm repair in the TAVR. SOCIAL HISTORY: Nonsmoker, does not consume alcohol. FAMILY MEDICAL HISTORY: Negative for lung disease. REVIEW OF SYSTEMS: Twelve-point review of systems otherwise negative. MEDICATIONS PRIOR TO ADMISSION: Prednisone, Glucotrol, Spiriva, Flomax, Dulera, metoprolol, Cozaar, DuoNeb, finasteride, famotidine, Vibramycin, atorvastatin, aspirin, amlodipine, and albuterol. PHYSICAL EXAMINATION: VITAL SIGNS: Temperature 98.4, pulse 76, blood pressure 118/69, O2 sat 100% on BiPAP. GENERAL: The patient is currently on BiPAP, appears to be comfortable. HEENT: Pupils react. Sclerae icteric. Oropharynx clear. NECK: Without adenopathy or JVD. CARDIAC: S1 and S2 regular. 2/6 systolic murmur left sternal border. LUNGS: Diminished breath sounds and dullness to percussion in the right base. CARDIOVASCULAR: Left side clear. ABDOMEN: Soft, nontender, nondistended. EXTREMITIES: No clubbing, cyanosis, 2+ lower extremity edema. LABORATORY DATA AND X-RAY FINDINGS: White blood cell count 10.9, hematocrit 39.3, platelet count 109 . D-dimer was greater than 20. PH 7.32, pCO2 of 52, PO2 of 83. On BiPAP 10/5, FiO2 of 70%. Sodiu m 139, potassium 5.8, chloride 107, CO2 of 29, BUN 46, creatinine 1.5, glucose 133. Lactate 0.9, tro ponin 0.029. BNP 217. I reviewed the chest x-ray and CT scan personally. ASSESSMENT: 1. Acute on chronic respiratory failure. 2. Adenocarcinoma, right upper lobe. 3. Pleural effusion. 4. History of valvular heart disease. PLAN: 1. I think it would be worth doing a diagnostic and therapeutic thoracentesis on the right chest. W jeanna discussed potential complications including, but not limited to bleeding, infection, and lung puncture. He is agreeable to proceed. 2. Continue BiPAP therapy in the interim. 3. Continue antibiotics have been started for the infiltrative changes. 4. I will notify Dr. Campos of the patient's hospitalization.
--- NOTE | 2017-12-03 15:56 | RAD ---
PORTABLE AP CHEST XRAY: DATE: 12/03/17. HISTORY: Post thoracentesis. COMPARISON: 12/03/17 at 0306 hours. FINDINGS: Again noted is a spiculated mass-like density in the right suprahilar region. Irregular aneurysmal d ilatation of the thoracic aorta is again present with atherosclerotic vascular calcifications noted. Cardiac silhouette is not well evaluated due to overlying aneurysmal dilatation of thoracic aorta bu t is stable in size from the prior exam. There are chronic lung changes and a suggestion of small ri ght pleural effusion. No pneumothorax is present. There are interstitial densities at the left lung base which may be related to either atelectasis or infiltrate. No other interval change. IMPRESSION: 1. Tiny right pleural effusion, but the pleural effusion does appear improved as well as improvement in interstitial and patchy density right lung base probably related to improving atelectasis. No pn eumothorax is seen. 2. Stable spiculated mass-like density in the right suprahilar region. 3. Interstitial and patchy density left lung base which may be related to atelectasis or pneumonia. Followup to resolution is recommended. 4. Irregular aneurysmal dilatation thoracic aorta with vascular calcifications. POS: [facility]
[2017-12-03] MEDS: Heparin 5,000 UNITS/ML VIAL SC SCH ×3 (16:28→21:07)
[2017-12-03] MEDS: Azithromycin 500 MG in Sodium Chloride 0.9% 250 ML 250 ML IVPB SCH (16:28)
--- NOTE | 2017-12-03 17:42 | OP ---
DATE OF PROCEDURE: 12/03/2017 PROCEDURE: Right thoracentesis. PREOPERATIVE DIAGNOSIS: Right pleural effusion. POSTOPERATIVE DIAGNOSIS: Right pleural effusion. ANESTHESIA: 1% lidocaine without epinephrine. DESCRIPTION OF PROCEDURE: The right posterior hemothorax was first visualized with ultrasound to mirian ntify the effusion site at about the 7th-8th interspace at the lateral scapular line on the right wander e. The skin was anesthetized with 1% lidocaine after being scrubbed with chlorhexidine. The pleural space was then entered with a Pyhb-N-Rubemutl catheter. Approximately 200 mL of jordy transudative- appearing fluid was removed and sent for appropriate studies. He tolerated the procedure well.
[2017-12-03] MEDS ORDERED: Dextrose 50% Abboject 50 ML SYRINGE SLOW IVP SCH (19:45)
[2017-12-03] MEDS ORDERED: Insulin Regular 300 UNITS/3 ML VIAL IVP SCH (19:45)
[2017-12-03] MEDS: Albuterol Sulfate 1.25 MG/3 ML NEB NEB SCH ×2 (20:12→23:42)
[2017-12-03] MEDS: ALPRAZolam 0.25 MG TAB PO PRN (22:58)
[2017-12-03] MEDS: Acetaminophen 325 MG TAB PO PRN (23:00)
[2017-12-04] MEDS: cefTRIAXone\\ROCEPHIN 1 GM in Sodium Chloride 0.9% 100 ML IVPB SCH (03:48)
[2017-12-04 04:19] LABS: #Lymphocytes 0.3 thou/uL (1.20-3.40); #Monocytes 0.9 thou/uL (0.11-0.59); #Neutrophils 13.1 thou/uL (1.40-6.50); %Basophils 0.1 % (0.0-1.0); %Eosinophils 0.1 % (0.0-10.0); %Lymphocytes 1.9 % (21.0-51.0); Hemoglobin 11.6 g/dL (14.0-18.0); Mean Corpuscular HGB CONC 32.9 g/dL (32.0-36.0); Mean Corpuscular Hemoglobin 31.1 pg (27.0-31.0); Mean Corpuscular Volume 94.5 fL (78.0-98.0); Mean Platelet Volume 7.6 fL (7.4-10.4); Platelet Count 104 thou/uL (130-400); RBC Distribution Width 13.7 % (11.5-14.5); Red Blood Cell (RBC) Count 3.74 mill/uL (4.70-6.10); White Blood Cell (WBC) Count 14.2 thou/uL (4.8-10.8)
[2017-12-04 04:28] LABS: Anion Gap 10 mmol/L (10-20); BUN (Urea Nitrogen) 59 mg/dL (8.4-25.7); Calc. Creatinine Clearance 33 mL/min (70-130); Calcium 9.5 mg/dL (7.8-10.44); Carbon Dioxide 28 mmol/L (23-31); Chloride 104 mmol/L (98-107); Estimated GFR-MDRD 34; Glucose 267 mg/dL (83-110); Potassium 4.9 mmol/L (3.5-5.1); Sodium 137 mmol/L (136-145)
[2017-12-04] MEDS ORDERED: ALPRAZolam 0.25 MG TAB PO PRN (10:14)
[2017-12-04] MEDS: Heparin 5,000 UNITS/ML VIAL SC SCH ×3 (11:13→20:54)
[2017-12-04] MEDS: Azithromycin 500 MG in Sodium Chloride 0.9% 250 ML 250 ML IVPB SCH (11:13)
[2017-12-04] MEDS ORDERED: Losartan 25 MG TAB PO SCH (11:15)
[2017-12-04] MEDS ORDERED: Benzonatate 100 MG CAP PO SCH (11:15)
[2017-12-04] MEDS ORDERED: Aspirin 81 mg Enteric Coated Tablet PO SCH (11:15)
[2017-12-04] MEDS ORDERED: Atorvastatin Calcium 20 MG TAB PO SCH (11:15)
[2017-12-04] MEDS ORDERED: Amlodipine 5 MG TAB PO SCH (11:15)
[2017-12-04] MEDS ORDERED: PROVENTIL INHALER 6.7 G (200 INHALATIONS) INH SCH (12:30)
--- NOTE | 2017-12-04 15:24 | PDOC.PN ---
- Subjective Encounter Start Date: 12/04/17 Encounter Start Time: 10:40 Pt seen for followup re: acute on chronic hypoxic respiratory failure. Feels better. Denies chest pain. Cough+, clear sputum+. No fevers or chills. - Objective Resuscitation Status: Resuscitation Status DNR:Do Not Resuscitate Vital Signs & Weight: Vital Signs (12 hours) Temp Pulse Resp BP Pulse Ox 12/04/17 12:18 98.2 F 80 18 120/68 90 L 12/04/17 11:32 79 12/04/17 07:30 98.8 F 79 19 145/77 H 97 12/04/17 07:28 97.8 F 87 18 97 12/04/17 03:59 97.8 F 87 18 131/71 100 Weight Weight 173 lb 8 oz Result Diagrams: 12/04/17 03:54 12/04/17 03:54 Additional Labs: Accuchecks 12/03/17 21:08 POC Glucose 254 H Phys Exam - Physical Examination Constitutional: NAD HEENT: moist MMs, sclera anicteric, oral pharynx no lesions, 2+ tonsils Neck: no nodes, no JVD, supple, full ROM Respiratory: no wheezing, no rhonchi Bibasal crackles Cardiovascular: RRR, no rub S1, S2 Gastrointestinal: soft, non-tender, no distention, positive bowel sounds Neurological: moves all 4 limbs Psychiatric: normal affect, A&O x 3 Dx/Plan (1) Acute on chronic respiratory failure with hypoxia Code(s): J96.21 - ACUTE AND CHRONIC RESPIRATORY FAILURE WITH HYPOXIA Status: Acute Comment: likely a combination of infection and volume overload (2) Pneumonia Code(s): J18.9 - PNEUMONIA, UNSPECIFIED ORGANISM Status: Acute Comment: continue IV ceftriaxone and azithromycin (3) Pleural effusion Code(s): J90 - PLEURAL EFFUSION, NOT ELSEWHERE CLASSIFIED Status: Acute Comment: s/p thoracentesis (4) CKD (chronic kidney disease), stage III Code(s): N18.3 - CHRONIC KIDNEY DISEASE, STAGE 3 (MODERATE) Status: Chronic Comment: stable (5) Hyperkalemia Code(s): E87.5 - HYPERKALEMIA Status: Resolved (6) Sepsis Code(s): A41.9 - SEPSIS, UNSPECIFIED ORGANISM Status: Resolved - Plan * . Review of Systems - Review of Systems Constitutional: negative: fever, chills, sweats, weakness, malaise Respiratory: Cough, Shortness of Breath, SOB with Excertion, Sputum. negative: Dry, Hemoptysis, Pleuritic Pain, Wheezing Cardiovascular: negative: chest pain, palpitations, orthopnea, paroxysmal nocturnal dyspnea, edema, light headedness Gastrointestinal: negative: Nausea, Vomiting, Abdominal Pain, Diarrhea, Constipation, Melena, Hematochezia Genitourinary: negative: Dysuria, Frequency, Incontinence, Hematuria, Retention Skin: negative: Rash, Lesions, Sami, Bruising - Medications/Allergies Allergies/Adverse Reactions: Allergies Allergy/AdvReac Type Severity Reaction Status Date / Time codeine AdvReac Verified 12/03/17 12:55 hydromorphone [From Dilaudid] AdvReac Verified 12/03/17 12:55 morphine AdvReac Verified 12/03/17 12:55 Medications: Current Medications Acetaminophen (Tylenol) 650 mg PO Q4H PRN PRN Reason: Headache/Fever or Pain Last Admin: 12/03/17 23:00 Dose: 650 mg Acetaminophen (Tylenol) 650 mg HI Q4H PRN PRN Reason: Headache/Fever or Pain Albuterol Sulfate (Ventolin) 2.5 mg NEB TID-RT LILY Alprazolam (Xanax) 0.125 mg PO TIDPRN PRN PRN Reason: Anxiety Last Admin: 12/03/17 22:58 Dose: 0.125 mg Alprazolam (Xanax) 0.125 mg PO TID PRN PRN Reason: Anxiety Amlodipine Besylate (Norvasc) 5 mg PO BID [facility] Aspirin (Ecotrin) 81 mg PO DAILY [facility] Atorvastatin Calcium (Lipitor) 20 mg PO DAILY [facility] Benzonatate (Tessalon) 200 mg PO HS [facility] Bisacodyl (Dulcolax) 10 mg PO DAILYPRN PRN PRN Reason: Constipation Famotidine (Pepcid) 20 mg PO DAILY [facility] Glipizide (Glucotrol) 5 mg PO DAILY [facility] Heparin Sodium (Porcine) (Heparin) 5,000 units SC TID [facility] Last Admin: 12/04/17 11:13 Dose: 5,000 units Azithromycin 500 mg/ Sodium (Chloride) 250 mls @ 250 mls/hr IVPB 0900 [facility] Last Admin: 12/04/17 11:13 Dose: 250 mls Ceftriaxone Sodium 1 gm/ (Sodium Chloride) 100 mls @ 200 mls/hr IVPB 0300 [facility] Last Admin: 12/04/17 03:48 Dose: 100 mls Losartan Potassium (Cozaar) 100 mg PO DAILY [facility] Metoprolol Succinate (Toprol Xl) 12.5 mg PO BID [facility] Pantoprazole Sodium (Protonix) 40 mg PO BID [facility] Sodium Chloride (Flush - Normal Saline) 10 ml IVF Q12HR [facility] Sodium Chloride (Flush - Normal Saline) 10 ml IVF PRN PRN PRN Reason: Saline Flush
--- NOTE | 2017-12-04 15:44 | PRG ---
DATE OF SERVICE: 12/04/2017 SERVICE: Pulmonary Medicine. INTERVAL HISTORY: After the thoracentesis, the patient's breathing improved dramatically. He is con tinuing to cough up a cup full of purulent/cloudy fluid. He denies any fevers, chills, nausea or vom iting. Otherwise, there has been no interval change to his condition. He did get a good night of re st last night and for that, he feels much improved. PHYSICAL EXAMINATION: VITAL SIGNS: Afebrile, pulse 80, blood pressure 120/68, respirations 18, saturation 90% on room air. GENERAL: The patient is awake, alert, no apparent distress. LUNGS: Excellent air entry. There is a prolonged expiratory phase. There are rhonchi that are exte nsive throughout bilateral lung willson. No wheezing or crackles are appreciated. HEART: Normal rate, regular. ABDOMEN: Soft, nontender, nondistended. Bowel sounds are positive. MUSCULOSKELETAL: No cyanosis or clubbing. No pitting in the bilateral lower extremities. NEUROLOGIC: Grossly nonfocal. LABORATORY DATA: WBC 14.2, hemoglobin 11.6, platelets 104,000. Creatinine 1.88 and gently up trendi ng. Basic metabolic profile is otherwise unremarkable. Blood sugar 254. BNP 217. Thoracentesis fl uid is consistent with a transudate. Body fluid cultures negative to date. IMAGING: Chest x-ray demonstrates interval improvement in the right-sided pleural effusion. Stable spiculated mass in the right upper lobe. Aneurysmal dilation of the thoracic aorta with vascular jasmin cifications identified. ASSESSMENT: 1. Pleural effusion, transudate. 2. Acute on chronic hypoxic respiratory failure, improved to baseline. 3. Chronic obstructive pulmonary disease with acute exacerbation. 4. Adenocarcinoma of the right upper lobe. DISCUSSION AND PLAN: We will continue nebulized medications, antibiotics and steroids. Add physioth erapy to the patient's regimen to see if we can liberate more sputum and allow him to feel better. W e will diurese the patient as tolerated, but currently he appears to be a touch intravascularly deple charisma and has developed a small prerenal azotemia. Things that are designed to suppress cough should b e minimized.
[2017-12-04] MEDS: Albuterol Sulfate 2.5 mg/3 ml Neb NEB SCH (18:39)
[2017-12-04] MEDS: Acetaminophen 325 MG TAB PO PRN (19:33)
[2017-12-04] MEDS: Benzonatate 100 MG CAP PO SCH (20:54)
[2017-12-04] MEDS: Amlodipine 5 MG TAB PO SCH (20:55)
[2017-12-05] MEDS ORDERED: Cepastat Lozenges 1 LOZ PO PRN (01:13)
[2017-12-05] MEDS: cefTRIAXone\\ROCEPHIN 1 GM in Sodium Chloride 0.9% 100 ML IVPB SCH (02:23)
[2017-12-05] MEDS: Acetaminophen 325 MG TAB PO PRN ×3 (02:31→21:10)
[2017-12-05] MEDS: Albuterol Sulfate 2.5 mg/3 ml Neb NEB SCH ×3 (07:45→18:35)
--- NOTE | 2017-12-05 08:51 | PRG ---
DATE OF SERVICE: 12/05/2017 The patient feels better. He did not require BiPAP yesterday. He still has a cough. PHYSICAL EXAMINATION: GENERAL: Most notable finding is total body anasarca. VITAL SIGNS: Temperature is 98.0, pulse 72, respirations 17, O2 sat 94%, blood pressure 159/81. HEENT: Unremarkable. NECK: No JVD. LUNGS: Fairly clear bilaterally. CARDIOVASCULAR: S1 and S2 regular. ABDOMEN: Soft, nontender. EXTREMITIES: Edematous throughout. LABORATORY DATA: No new labs were done today. ASSESSMENT: 1. Transudative pleural effusion 2. History of right upper lobe adenocarcinoma treated with radiation. 3. Acute on chronic hypoxic respiratory failure, which is improved. 4. Chronic obstructive pulmonary disease. PLAN: The patient can be transferred out to the medical floor. We need to get physical therapy invo lved and see if we can increase his physical activity. Probably need to consider putting him on low dose diuretic.
[2017-12-05] MEDS ORDERED: Benzonatate 100 MG CAP PO SCH (09:00)
[2017-12-05] MEDS: Heparin 5,000 UNITS/ML VIAL SC SCH ×3 (09:32→21:12)
[2017-12-05] MEDS: glipiZIDE 5 MG TAB PO SCH (09:32)
[2017-12-05] MEDS: Aspirin 81 mg Enteric Coated Tablet PO SCH (09:32)
[2017-12-05] MEDS: Atorvastatin Calcium 20 MG TAB PO SCH (09:33)
[2017-12-05] MEDS: Losartan 25 MG TAB PO SCH (09:33)
[2017-12-05] MEDS: Furosemide 20 MG TAB PO SCH (09:33)
[2017-12-05] MEDS: Famotidine 20 MG TAB PO SCH (09:34)
[2017-12-05] MEDS: Amlodipine 5 MG TAB PO SCH ×2 (09:34→21:11)
--- NOTE | 2017-12-05 19:09 | PDOC.PN ---
- Subjective Encounter Start Date: 12/05/17 Encounter Start Time: 13:15 Subjective: pt up in bed no complains - Objective Resuscitation Status: Resuscitation Status DNR:Do Not Resuscitate Vital Signs & Weight: Vital Signs (12 hours) Temp Pulse Resp BP Pulse Ox 12/05/17 18:35 64 16 84 L 12/05/17 16:00 97.7 F 64 22 H 145/89 H 94 L 12/05/17 13:50 70 16 12/05/17 12:59 91 L 12/05/17 11:03 98 F 72 20 138/84 91 L 12/05/17 09:34 72 12/05/17 07:51 98.0 F 72 17 94 L 12/05/17 07:48 93 L 12/05/17 07:45 72 21 H 93 L 12/05/17 07:29 98.0 F 71 17 159/81 H 93 L Weight Weight 173 lb 8 oz I&O: 12/04/17 12/05/17 12/06/17 06:59 06:59 06:59 Intake Total 400 400 Output Total 325 Balance 75 400 Result Diagrams: 12/04/17 03:54 12/04/17 03:54 Additional Labs: Accuchecks 12/05/17 12/05/17 12/05/17 16:59 15:45 11:21 POC Glucose 178 H 190 H 176 H 12/05/17 12/04/17 06:04 20:52 POC Glucose 139 H 164 H Phys Exam - Physical Examination HEENT: PERRLA, moist MMs, sclera anicteric, TM's clear, oral pharynx no lesions , 2+ tonsils Neck: no nodes, no JVD, supple, full ROM decreased breath to bilateral bases Cardiovascular: RRR, no significant murmur, no rub, gallop, irregular Gastrointestinal: soft, non-tender, no distention, positive bowel sounds Musculoskeletal: no edema, pulses present, edema present Dx/Plan (1) Acute on chronic respiratory failure with hypoxia Code(s): J96.21 - ACUTE AND CHRONIC RESPIRATORY FAILURE WITH HYPOXIA Status: Acute Comment: likely a combination of infection and volume overload (2) Pleural effusion Code(s): J90 - PLEURAL EFFUSION, NOT ELSEWHERE CLASSIFIED Status: Acute Comment: s/p thoracentesis (3) Pneumonia Code(s): J18.9 - PNEUMONIA, UNSPECIFIED ORGANISM Status: Acute Comment: continue IV ceftriaxone and azithromycin (4) Aortic aneurysm, descending Code(s): I71.9 - AORTIC ANEURYSM OF UNSPECIFIED SITE, WITHOUT RUPTURE Status: Acute - Plan continue abx for now -: per lights criteria right pleural effusion tranudative -: Pt's descending aortic aneurysm is 7.4cm unclear about his previous -: read. will try to obtain records. will get PT to see pt. * . Review of Systems - Review of Systems Respiratory: Cough Cardiovascular: negative: chest pain, palpitations, orthopnea, paroxysmal nocturnal dyspnea, edema, light headedness, other Gastrointestinal: negative: Nausea, Vomiting, Abdominal Pain, Diarrhea, Constipation, Melena, Hematochezia, Other - Medications/Allergies Allergies/Adverse Reactions: Allergies Allergy/AdvReac Type Severity Reaction Status Date / Time codeine AdvReac Verified 12/03/17 12:55 hydromorphone [From Dilaudid] AdvReac Verified 12/03/17 12:55 morphine AdvReac Verified 12/03/17 12:55 Medications: Current Medications Acetaminophen (Tylenol) 650 mg PO Q4H PRN PRN Reason: Headache/Fever or Pain Last Admin: 12/05/17 13:39 Dose: 650 mg Acetaminophen (Tylenol) 650 mg [place] Q4H PRN PRN Reason: Headache/Fever or Pain Albuterol Sulfate (Ventolin) 2.5 mg NEB TID-RT [facility] Last Admin: 12/05/17 18:35 Dose: 2.5 mg Alprazolam (Xanax) 0.125 mg PO TIDPRN PRN PRN Reason: Anxiety Last Admin: 12/03/17 22:58 Dose: 0.125 mg Alprazolam (Xanax) 0.125 mg PO TID PRN PRN Reason: Anxiety Amlodipine Besylate (Norvasc) [address] [facility] Last Admin: 12/05/17 09:34 Dose: 5 mg Aspirin (Ecotrin) [address] [facility] Last Admin: 12/05/17 09:32 Dose: 81 mg Atorvastatin Calcium (Lipitor) [address] [facility] Last Admin: 12/05/17 09:33 Dose: 20 mg Benzonatate (Tessalon) [address] [facility] Last Admin: 12/04/17 20:54 Dose: 200 mg Bisacodyl (Dulcolax) 10 mg PO DAILYPRN PRN PRN Reason: Constipation Famotidine (Pepcid) [address] [facility] Last Admin: 12/05/17 09:34 Dose: 20 mg Furosemide (Lasix) [address] [facility] Last Admin: 12/05/17 09:33 Dose: 20 mg Glipizide (Glucotrol) [address] [facility] Last Admin: 12/05/17 09:32 Dose: 5 mg Heparin Sodium (Porcine) (Heparin) 5,[address] [facility] Last Admin: 12/05/17 15:46 Dose: 5,000 units Ceftriaxone Sodium 1 gm/ (Sodium Chloride) 100 mls @ 200 mls/hr IVPB 0300 [facility] Last Admin: 12/05/17 02:23 Dose: 100 mls Losartan Potassium (Cozaar) [address] [facility] Last Admin: 12/05/17 09:33 Dose: 100 mg Metoprolol Succinate (Toprol Xl) 12.[address] [facility] Last Admin: 12/05/17 09:33 Dose: 12.5 mg Pantoprazole Sodium (Protonix) [address] [facility] Last Admin: 12/05/17 09:32 Dose: 40 mg Throat Lozenges (Cepastat Lozenges) 1 lesia PO Q1H PRN PRN Reason: SORE THROAT/COUGH Last Admin: 12/05/17 02:23 Dose: 1 lesia
[2017-12-05] MEDS: Benzonatate 100 MG CAP PO SCH (21:11)
[2017-12-06] MEDS: cefTRIAXone\\ROCEPHIN 1 GM in Sodium Chloride 0.9% 100 ML IVPB SCH (03:45)
[2017-12-06 04:40] LABS: #Eosinphils 0.1 thou/uL (0.0-0.7); #Lymphocytes 0.3 thou/uL (1.20-3.40); #Monocytes 0.6 thou/uL (0.11-0.59); #Neutrophils 5.7 thou/uL (1.40-6.50); %Basophils 0.2 % (0.0-1.0); %Eosinophils 1.7 % (0.0-10.0); %Monocytes 8.7 % (0.0-10.0); %Neutrophils 84.3 % (42.0-75.0); Hemoglobin 11.7 g/dL (14.0-18.0); Mean Corpuscular Hemoglobin 30.5 pg (27.0-31.0); Mean Corpuscular Volume 95.3 fL (78.0-98.0); Platelet Count 101 thou/uL (130-400); RBC Distribution Width 13.6 % (11.5-14.5); Red Blood Cell (RBC) Count 3.85 mill/uL (4.70-6.10); White Blood Cell (WBC) Count 6.8 thou/uL (4.8-10.8)
[2017-12-06 04:42] LABS: Anion Gap 9 mmol/L (10-20); BUN (Urea Nitrogen) 50 mg/dL (8.4-25.7); Calc. Creatinine Clearance 38 mL/min (70-130); Calcium 9.3 mg/dL (7.8-10.44); Carbon Dioxide 30 mmol/L (23-31); Chloride 104 mmol/L (98-107); Estimated GFR-MDRD 41; Glucose 174 mg/dL (83-110); Potassium 4.3 mmol/L (3.5-5.1); Sodium 139 mmol/L (136-145)
[2017-12-06] MEDS: Albuterol Sulfate 2.5 mg/3 ml Neb NEB SCH ×3 (06:48→19:19)
[2017-12-06] MEDS: Aspirin 81 mg Enteric Coated Tablet PO SCH (08:17)
[2017-12-06] MEDS: Losartan 25 MG TAB PO SCH (08:18)
[2017-12-06] MEDS: glipiZIDE 5 MG TAB PO SCH (08:18)
[2017-12-06] MEDS: Famotidine 20 MG TAB PO SCH (08:18)
[2017-12-06] MEDS: Atorvastatin Calcium 20 MG TAB PO SCH (08:19)
[2017-12-06] MEDS: Furosemide 20 MG TAB PO SCH (08:19)
[2017-12-06] MEDS: Amlodipine 5 MG TAB PO SCH ×2 (08:19→20:46)
[2017-12-06] MEDS: Heparin 5,000 UNITS/ML VIAL SC SCH ×3 (08:21→20:48)
[2017-12-06] MEDS: Acetaminophen 325 MG TAB PO PRN ×2 (10:08→20:47)
--- NOTE | 2017-12-06 14:41 | PDOC.PN ---
- Subjective Encounter Start Date: 12/06/17 Encounter Start Time: 11:55 Subjective: pt up in bed no complains - Objective Resuscitation Status: Resuscitation Status DNR:Do Not Resuscitate Vital Signs & Weight: Vital Signs (12 hours) Temp Pulse Resp BP BP Pulse Ox 12/06/17 13:49 91 L 12/06/17 13:30 97.6 F 65 26 H 122/70 93 L 12/06/17 12:50 62 20 90 L 12/06/17 08:19 80 130/89 12/06/17 08:16 97.8 F 80 24 H 96 12/06/17 07:46 97.8 F 80 24 H 130/89 96 12/06/17 06:51 60 16 92 L 12/06/17 06:48 56 L 16 92 L 12/06/17 04:00 97.7 F 77 18 151/92 H 93 L Weight Weight 173 lb 8 oz I&O: 12/05/17 12/06/17 12/07/17 06:59 06:59 06:59 Intake Total 400 400 Output Total 325 Balance 75 400 Result Diagrams: 12/06/17 03:53 12/06/17 03:53 Additional Labs: Accuchecks 12/06/17 12/06/17 12/05/17 11:21 05:37 21:22 POC Glucose 134 H 165 H 231 H 12/05/17 12/05/17 16:59 15:45 POC Glucose 178 H 190 H Phys Exam - Physical Examination HEENT: PERRLA, moist MMs, sclera anicteric, TM's clear, oral pharynx no lesions , 2+ tonsils Neck: no nodes, no JVD, supple, full ROM decreased breath sounds to bases Cardiovascular: RRR, no significant murmur, no rub, gallop, irregular Gastrointestinal: soft, non-tender, no distention, positive bowel sounds mild lower ext edema Dx/Plan (1) Acute on chronic respiratory failure with hypoxia Code(s): J96.21 - ACUTE AND CHRONIC RESPIRATORY FAILURE WITH HYPOXIA Status: Acute Comment: likely a combination of infection and volume overload (2) Pleural effusion Code(s): J90 - PLEURAL EFFUSION, NOT ELSEWHERE CLASSIFIED Status: Acute Comment: s/p thoracentesis (3) Pneumonia Code(s): J18.9 - PNEUMONIA, UNSPECIFIED ORGANISM Status: Acute Comment: continue IV ceftriaxone and azithromycin (4) Aortic aneurysm, descending Code(s): I71.9 - AORTIC ANEURYSM OF UNSPECIFIED SITE, WITHOUT RUPTURE Status: Acute - Plan pt up in bed feels better -: Had a talk with pt's family about his descending aneurysm 7.4cm -: will fax report to his surgeon in [place] -: will continue current tx * . Review of Systems - Review of Systems Eyes: negative: Pain, Vision Change, Conjunctivae Inflammation, Eyelid Inflammation, Redness, Other ENT: negative: Ear Pain, Ear Discharge, Nose Pain, Nose Discharge, Nose Congestion, Mouth Pain, Mouth Swelling, Throat Pain, Throat Swelling, Other Respiratory: negative: Cough, Dry, Shortness of Breath, Hemoptysis, SOB with Excertion, Pleuritic Pain, Sputum, Wheezing Cardiovascular: negative: chest pain, palpitations, orthopnea, paroxysmal nocturnal dyspnea, edema, light headedness, other Gastrointestinal: negative: Nausea, Vomiting, Abdominal Pain, Diarrhea, Constipation, Melena, Hematochezia, Other - Medications/Allergies Allergies/Adverse Reactions: Allergies Allergy/AdvReac Type Severity Reaction Status Date / Time codeine AdvReac Verified 12/03/17 12:55 hydromorphone [From Dilaudid] AdvReac Verified 12/03/17 12:55 morphine AdvReac Verified 12/03/17 12:55 Medications: Current Medications Acetaminophen (Tylenol) 650 mg PO Q4H PRN PRN Reason: Headache/Fever or Pain Last Admin: 12/06/17 10:08 Dose: 650 mg Acetaminophen (Tylenol) 650 mg [place] Q4H PRN PRN Reason: Headache/Fever or Pain Albuterol Sulfate (Ventolin) 2.5 mg NEB TID-RT [facility] Last Admin: 12/06/17 12:50 Dose: 2.5 mg Alprazolam (Xanax) 0.125 mg PO TIDPRN PRN PRN Reason: Anxiety Last Admin: 12/03/17 22:58 Dose: 0.125 mg Alprazolam (Xanax) 0.125 mg PO TID PRN PRN Reason: Anxiety Amlodipine Besylate (Norvasc) 5 mg PO BID [facility] Last Admin: 12/06/17 08:19 Dose: 5 mg Aspirin (Ecotrin) 81 mg PO DAILY [facility] Last Admin: 12/06/17 08:17 Dose: 81 mg Atorvastatin Calcium (Lipitor) 20 mg PO DAILY [facility] Last Admin: 12/06/17 08:19 Dose: 20 mg Benzonatate (Tessalon) 200 mg PO HS [facility] Last Admin: 12/05/17 21:11 Dose: 200 mg Bisacodyl (Dulcolax) 10 mg PO DAILYPRN PRN PRN Reason: Constipation Famotidine (Pepcid) 20 mg PO DAILY [facility] Last Admin: 12/06/17 08:18 Dose: 20 mg Furosemide (Lasix) 20 mg PO DAILY [facility] Last Admin: 12/06/17 08:19 Dose: 20 mg Glipizide (Glucotrol) 5 mg PO DAILY [facility] Last Admin: 12/06/17 08:18 Dose: 5 mg Heparin Sodium (Porcine) (Heparin) 5,000 units SC TID [facility] Last Admin: 12/06/17 08:21 Dose: 5,000 units Ceftriaxone Sodium 1 gm/ (Sodium Chloride) 100 mls @ 200 mls/hr IVPB 0300 [facility] Last Admin: 12/06/17 03:45 Dose: 100 mls Losartan Potassium (Cozaar) 100 mg PO DAILY [facility] Last Admin: 12/06/17 08:18 Dose: 100 mg Metoprolol Succinate (Toprol Xl) 12.5 mg PO BID [facility] Last Admin: 12/06/17 08:18 Dose: 12.5 mg Pantoprazole Sodium (Protonix) 40 mg PO BID [facility] Last Admin: 12/06/17 08:18 Dose: 40 mg Throat Lozenges (Cepastat Lozenges) 1 lesia PO Q1H PRN PRN Reason: SORE THROAT/COUGH Last Admin: 12/05/17 02:23 Dose: 1 lesia
[2017-12-06] MEDS ORDERED: predniSONE 20 MG TAB PO SCH (16:00)
--- NOTE | 2017-12-06 16:12 | PRG ---
DATE OF SERVICE: 12/06/2017 PHYSICAL EXAMINATION: VITAL SIGNS: He is afebrile, heart rate is in 60s, respiratory rate in the 20s, oximetry is 93% on 1 .5 liters, blood pressure 122/70. LUNGS: Clear. HEART: Regular rhythm. ABDOMEN: Soft. EXTREMITIES: Without asymmetry. NEUROLOGIC: Nonfocal. He says he is doing more and more each day with therapy. IMPRESSION: 1. Acute on chronic respiratory failure with hypoxemia. 2. Status post thoracentesis which revealed transudative effusion. Pathology is still pending. An echocardiogram has not been done. This needs to be done to complete the workup of his effusion. Continue to follow.
[2017-12-06] MEDS: Benzonatate 100 MG CAP PO SCH (20:46)
[2017-12-06] MEDS: Cefuroxime Axetil 250 MG TAB PO SCH (20:50)
[2017-12-07] MEDS: ALPRAZolam 0.25 MG TAB PO PRN ×2 (03:25→20:27)
[2017-12-07] MEDS: Albuterol Sulfate 2.5 mg/3 ml Neb NEB SCH ×3 (06:40→19:23)
[2017-12-07] MEDS: Losartan 25 MG TAB PO SCH (08:39)
[2017-12-07] MEDS: Atorvastatin Calcium 20 MG TAB PO SCH (08:40)
[2017-12-07] MEDS: Aspirin 81 mg Enteric Coated Tablet PO SCH (08:40)
[2017-12-07] MEDS: glipiZIDE 5 MG TAB PO SCH (08:40)
[2017-12-07] MEDS: Famotidine 20 MG TAB PO SCH (08:40)
[2017-12-07] MEDS: predniSONE 20 MG TAB PO SCH (08:40)
[2017-12-07] MEDS: Furosemide 20 MG TAB PO SCH (08:41)
[2017-12-07] MEDS: Cefuroxime Axetil 250 MG TAB PO SCH ×2 (08:42→20:29)
[2017-12-07] MEDS: Amlodipine 5 MG TAB PO SCH ×2 (08:42→20:28)
[2017-12-07] MEDS: Heparin 5,000 UNITS/ML VIAL SC SCH ×3 (08:43→20:25)
[2017-12-07] MEDS: Acetaminophen 325 MG TAB PO PRN (10:35)
--- NOTE | 2017-12-07 13:09 | EKG ---
Test Reason : Blood Pressure : / mmHG Vent. Rate : 096 BPM Atrial Rate : 096 BPM P-R Int : 204 ms QRS Dur : 112 ms QT Int : 406 ms P-R-T Axes : 017 -44 117 degrees QTc Int : 512 ms Sinus rhythm with occasional Premature ventricular complexes and Fusion complexes Left axis deviation Left ventricular hypertrophy with repolarization abnormality Possible Lateral infarct , age undetermined Inferior infarct , age undetermined Prolonged QT Abnormal ECG Confirmed by MIKY RAMIREZ ([id number]), video effects editor KIMBERLY ROSE ([id number]) on 12/07/2017 1:09:52 PM Referred By: Confirmed By:MIKY RAMIREZ
--- NOTE | 2017-12-07 13:48 | PDOC.PN ---
- Subjective Encounter Start Date: 12/07/17 Encounter Start Time: 11:00 Subjective: pt up in bed no complains - Objective Resuscitation Status: Resuscitation Status DNR:Do Not Resuscitate Vital Signs & Weight: Vital Signs (12 hours) Temp Pulse Resp BP BP BP Pulse Ox 12/07/17 13:27 81 16 94 L 12/07/17 11:20 98.4 F 95 24 H 152/74 H 94 L 12/07/17 08:42 77 149/73 H 12/07/17 08:35 98.2 F 93 23 H 93 L 12/07/17 08:00 98.2 F 93 23 H 149/73 H 93 L 12/07/17 06:40 102 H 16 95 12/07/17 06:39 96 12/07/17 06:30 102 H 16 95 Weight Weight 173 lb 8 oz I&O: 12/06/17 12/07/17 12/08/17 06:59 06:59 06:59 Intake Total 400 750 Balance 400 750 Result Diagrams: 12/06/17 03:53 12/06/17 03:53 Additional Labs: Accuchecks 12/07/17 12/07/17 12/07/17 11:15 06:20 00:38 POC Glucose 185 H 252 H 262 H 12/06/17 16:37 POC Glucose 204 H Phys Exam - Physical Examination HEENT: PERRLA, moist MMs, sclera anicteric, TM's clear, oral pharynx no lesions , 2+ tonsils Neck: no nodes, no JVD, supple, full ROM decreased breath sound to bilateral lung bases Cardiovascular: RRR, no significant murmur, no rub, gallop, irregular Gastrointestinal: soft, non-tender, no distention, positive bowel sounds mild swelling to his left hand Dx/Plan (1) Acute on chronic respiratory failure with hypoxia Code(s): J96.21 - ACUTE AND CHRONIC RESPIRATORY FAILURE WITH HYPOXIA Status: Acute Comment: likely a combination of infection and volume overload (2) Pleural effusion Code(s): J90 - PLEURAL EFFUSION, NOT ELSEWHERE CLASSIFIED Status: Acute Comment: s/p thoracentesis (3) Pneumonia Code(s): J18.9 - PNEUMONIA, UNSPECIFIED ORGANISM Status: Acute (4) Aortic aneurysm, descending Code(s): I71.9 - AORTIC ANEURYSM OF UNSPECIFIED SITE, WITHOUT RUPTURE Status: Acute - Plan abx changed to oral -: echo ordered -: possible home in the next 24-48hr * . Review of Systems - Review of Systems ENT: negative: Ear Pain, Ear Discharge, Nose Pain, Nose Discharge, Nose Congestion, Mouth Pain, Mouth Swelling, Throat Pain, Throat Swelling, Other Respiratory: negative: Cough, Dry, Shortness of Breath, Hemoptysis, SOB with Excertion, Pleuritic Pain, Sputum, Wheezing Cardiovascular: negative: chest pain, palpitations, orthopnea, paroxysmal nocturnal dyspnea, edema, light headedness, other Gastrointestinal: negative: Nausea, Vomiting, Abdominal Pain, Diarrhea, Constipation, Melena, Hematochezia, Other - Medications/Allergies Allergies/Adverse Reactions: Allergies Allergy/AdvReac Type Severity Reaction Status Date / Time codeine AdvReac Verified 12/03/17 12:55 hydromorphone [From Dilaudid] AdvReac Verified 12/03/17 12:55 morphine AdvReac Verified 12/03/17 12:55 Medications: Current Medications Acetaminophen (Tylenol) 650 mg PO Q4H PRN PRN Reason: Headache/Fever or Pain Last Admin: 12/07/17 10:35 Dose: 650 mg Acetaminophen (Tylenol) 650 mg [place] Q4H PRN PRN Reason: Headache/Fever or Pain Albuterol Sulfate (Ventolin) 2.5 mg NEB TID-RT [facility] Last Admin: 12/07/17 13:27 Dose: 2.5 mg Alprazolam (Xanax) 0.125 mg PO TIDPRN PRN PRN Reason: Anxiety Last Admin: 12/07/17 03:25 Dose: 0.125 mg Alprazolam (Xanax) 0.125 mg PO TID PRN PRN Reason: Anxiety Amlodipine Besylate (Norvasc) 5 mg PO BID [facility] Last Admin: 12/07/17 08:42 Dose: 5 mg Aspirin (Ecotrin) 81 mg PO DAILY [facility] Last Admin: 12/07/17 08:40 Dose: 81 mg Atorvastatin Calcium (Lipitor) 20 mg PO DAILY [facility] Last Admin: 12/07/17 08:40 Dose: 20 mg Benzonatate (Tessalon) 200 mg PO HS [facility] Last Admin: 12/06/17 20:46 Dose: 200 mg Bisacodyl (Dulcolax) 10 mg PO DAILYPRN PRN PRN Reason: Constipation Last Admin: 12/07/17 08:39 Dose: 10 mg Cefuroxime Axetil (Ceftin) 250 mg PO Q12HR [facility] Last Admin: 12/07/17 08:42 Dose: 250 mg Famotidine (Pepcid) 20 mg PO DAILY [facility] Last Admin: 12/07/17 08:40 Dose: 20 mg Furosemide (Lasix) 20 mg PO DAILY [facility] Last Admin: 12/07/17 08:41 Dose: 20 mg Glipizide (Glucotrol) 5 mg PO DAILY [facility] Last Admin: 12/07/17 08:40 Dose: 5 mg Heparin Sodium (Porcine) (Heparin) 5,000 units SC TID [facility] Last Admin: 12/07/17 08:43 Dose: 5,000 units Losartan Potassium (Cozaar) 100 mg PO DAILY [facility] Last Admin: 12/07/17 08:39 Dose: 100 mg Metoprolol Succinate (Toprol Xl) 12.5 mg PO BID [facility] Pantoprazole Sodium (Protonix) 40 mg PO BID [facility] Last Admin: 12/07/17 08:41 Dose: 40 mg Prednisone (Prednisone) 20 mg PO QAM-[facility] Last Admin: 12/07/17 08:40 Dose: 20 mg Throat Lozenges (Cepastat Lozenges) 1 lesia PO Q1H PRN PRN Reason: SORE THROAT/COUGH Last Admin: 12/05/17 02:23 Dose: 1 lesia
[2017-12-07] MEDS ORDERED: Dextrose 5% in Water 1,000 ML IV PRN (16:01)
[2017-12-07] MEDS ORDERED: HumaLOG 300 UNITS/3 ML VIAL SC PRN (16:01)
[2017-12-07] MEDS ORDERED: Dextrose 50% Abboject 50 ML SYRINGE SLOW IVP PRN (16:01)
--- NOTE | 2017-12-07 19:29 | PRG ---
DATE OF SERVICE: 12/07/2017 SUBJECTIVE: Mr. Ware sit at the side of the bed in the chair. He said he was feeling better. He has had an echocardiogram done and results are pending. Pleural fluid was transudative. His lungs are free of wheezes. His family wanted to see Dr. Friedman prior to discharge after review ing the echocardiogram. I put in a consult for Dr. Friedman. His COPD appears to be stable. I elaine steffany his pleural effusions either related to hypertension, although he says his blood pressures in the morning have been normal or related to a change in his left ventricular systolic function.
[2017-12-07] MEDS ORDERED: Furosemide 20 MG/2 ML VIAL SLOW IVP SCH (20:00)
[2017-12-07] MEDS: Benzonatate 100 MG CAP PO SCH (20:26)
--- NOTE | 2017-12-08 03:12 | CON ---
DATE OF CONSULTATION: 12/07/2017 HISTORY OF PRESENT ILLNESS: The patient is a pleasant 82-year-old gentleman with a history of aortic valve with a history of an aortic repair by Dr. Ramirez. The patient also has had previous TAVR placed by Dr. Kline in 2013. The patient also has a history of postoperative atrial fibrillation, and was then placed on anticoagulation therapy. The patient most recently was diagnosed with lung carcinoma. He was admitted with a pleural effusion and increasing dyspnea. The patient denied having any chest discomfort. PAST MEDICAL HISTORY: 1. Surgical repair of the aorta. 2. History of transcatheter aortic valve replacement. 3. Lung carcinoma, diabetes. 4. Diabetes mellitus. 5. Hypertension. 6. Hyperlipidemia. ALLERGIES: CODEINE. SOCIAL HISTORY: Nonsmoker. FAMILY HISTORY: There is no strong family history of heart disease. MEDICATIONS: Norvasc 5 mg p.o. b.i.d., Lipitor 20 daily, losartan 100 daily, glipizide 5 daily, and Xanax 0.2 t.i.d. PAST SURGICAL HISTORY: 1. Aortic aneurysm resection and TAVR. 2. He has a history of lung carcinoma. 3. Chronic obstructive pulmonary disease. 4. Diabetes mellitus. 5. Hypertension. PAST SURGICAL HISTORY: Aortic aneurysm repair. SOCIAL HISTORY: Nonsmoker. FAMILY HISTORY: No strong family history of coronary artery disease. ALLERGIES: No known drug allergies. REVIEW OF SYSTEMS: Noticeable for increasing weakness and patient has undergone radiation therapy. PHYSICAL EXAMINATION: GENERAL: This is a pale gentleman in no acute distress. VITAL SIGNS: Blood pressure 131/77. NECK: Showed no jugular venous distention. LUNGS: His lungs have crackles throughout lung willson up to both bases. HEART: Regular rate and rhythm, normal S1, S2, 1/6 systolic murmur. ABDOMEN: Mildly distended. EXTREMITIES: Showed mild bilateral edema. SKIN: Pale. VASCULAR: Radial pulses 2+. LABORATORY RESULTS: His white blood count 6.8 and 11.7, hematocrit 36.7 and his platelets were 101. His sodium was 139, potassium 4.3, chloride 104, bicarbonate 30, BUN 50, creatinine is 1.6. His EKG on admission revealed normal sinus rhythm, left axis deviation, Q-waves suggestive of a previous inferior infarct. Echocardiogram was a technically suboptimal exam, normal left ventricular ejection fraction 55-60% with diastolic dysfunction. Telemetry revealed nonsustained ventricular tachycardia. IMPRESSION: 1. Congestive heart failure, diastolic dysfunction. 2. History of lung carcinoma. 3. History of transcatheter aortic valve replacement. 4. History of aortic aneurysm surgery. 5. Chronic obstructive pulmonary disease. 6. Nonsustained ventricular tachycardia. 7. Diabetes mellitus. 8. Chronic renal failure. 9. Hypertension. This gentleman presented several days ago with the pleural effusion. He underwent a thoracentesis. It was found to be transudative. His BNP is mildly elevated. I expect he has mild congestive heart failure secondary to diastolic dysfunction. We will switch to mild doses of IV Lasix. The patient did have nonsustained ventricular tachycardia, but has not been receiving his beta rosibel therapy. We will monitor on telemetry to see if he develops further ventricular tachycardia. We will also switch to IV Lasix. The patient's prognosis is guarded. MTDD
[2017-12-08] MEDS: Furosemide 20 MG/2 ML VIAL SLOW IVP SCH ×2 (06:10→14:12)
[2017-12-08] MEDS: Albuterol Sulfate 2.5 mg/3 ml Neb NEB SCH ×2 (06:54→12:37)
[2017-12-08] MEDS: Heparin 5,000 UNITS/ML VIAL SC SCH ×2 (08:40→14:13)
[2017-12-08] MEDS: Cefuroxime Axetil 250 MG TAB PO SCH (08:41)
[2017-12-08] MEDS: Losartan 25 MG TAB PO SCH (08:41)
[2017-12-08] MEDS: Famotidine 20 MG TAB PO SCH (08:42)
[2017-12-08] MEDS: predniSONE 20 MG TAB PO SCH (08:42)
[2017-12-08] MEDS: Amlodipine 5 MG TAB PO SCH (08:42)
[2017-12-08] MEDS: glipiZIDE 5 MG TAB PO SCH (08:42)
[2017-12-08] MEDS: Aspirin 81 mg Enteric Coated Tablet PO SCH (08:42)
[2017-12-08] MEDS: Atorvastatin Calcium 20 MG TAB PO SCH (08:42)
[2017-12-08 11:44] VITALS: BP 149/72; TEMP 98.1
--- NOTE | 2017-12-08 19:16 | PRG ---
DATE OF SERVICE: 12/08/2017 SUBJECTIVE: Gomez Ware was transferred to telemetry overnight. He received a dose of IV Lasix l ast night. He says he feels well. He wants to go home. Lungs were free of wheezes. IMPRESSION: 1. Chronic obstructive pulmonary disease. 2. Diastolic dysfunction with a transudative effusion. 3. Status post sterotactic radiation. PLAN: Discharge home with close outpatient followup. I will see him in 2 weeks. Take 10 mg prednis one a day until he sees me. We will continue his nebulizer treatments. Follow up with his primary d agatha, Dr. Russell and Dr. Friedman.
== END 2017-12-08 15:04 | disposition home health service (06) | DRG 871 ==
LOC: ERS 02:22 → ERHOLD 05:44 → IMCU/EMU 12:38 → T4-A 12-05 10:58 → 2NO 12-07 17:12
PROVIDERS: ADMIT Internal Medicine; ATTEND Internal Medicine
PROC: 0W993ZX Drainage of Right Pleural Cavity, Percutaneous Approach, Diagnostic (ICD-10-PCS; principal; 2017-12-03)
PROC: 5A09457 Assistance with Respiratory Ventilation, 24-96 Consecutive Hours, Continuous Positive Airway Pressure (ICD-10-PCS; 2017-12-03)
DX: A41.9 Sepsis, unspecified organism (principal); J18.9 Pneumonia, unspecified organism; J96.21 Acute and chronic respiratory failure with hypoxia; J90 Pleural effusion, not elsewhere classified; J44.0 Chronic obstructive pulmonary disease with (acute) lower respiratory infection; J44.1 Chronic obstructive pulmonary disease with (acute) exacerbation; I47.2 Ventricular tachycardia; C34.11 Malignant neoplasm of upper lobe, right bronchus or lung; I13.0 Hypertensive heart and chronic kidney disease with heart failure and stage 1 through stage 4 chronic kidney disease, or unspecified chronic kidney disease; I50.32 Chronic diastolic (congestive) heart failure; R65.20 Severe sepsis without septic shock; E87.5 Hyperkalemia; Z66 Do not resuscitate; Z79.82 Long term (current) use of aspirin; Z95.2 Presence of prosthetic heart valve; F41.9 Anxiety disorder, unspecified; E11.22 Type 2 diabetes mellitus with diabetic chronic kidney disease; I71.9 Aortic aneurysm of unspecified site, without rupture; N18.3 Chronic kidney disease, stage 3 (moderate)
CPT/HCPCS: 32554; 36415; 36416; 71045; 71275; 80048; 80053; 81003; 81015; 82150; 82553; 82805; 82945; 83605; 83615; 83690; 83735; 83880; 83986; 84157; 84478; 84484; 85025; 85060; 85379; 87070; 87116; 87205; 87206; 88112; 88305; 88341; 88342; 89051; 93005; 93306; 94640; 94660; 94667; 94668; 96365; 96366; 96367; 96375; A4216; G8978-GP-CL; G8979-GP-CJ; J0456; J0696; J1642; J1644; J1815; J1940; J2001; J2930; J7050; J7506; J7611